=== PATIENT | male | born 1975 | race Caucasian/White ===

== ENCOUNTER 2019-12-23 12:35 | Day surgery (SDC) | payer MEDICAID, SELFPAY ==
[2019-12-22 11:27] VITALS: BMI 33.9
--- NOTE | 2019-12-22 12:18 | HO.ANESPROP2 ---
HPI - Anesthesia Eval Consult details Narrative: 44yo M for EGD PMFSH Past Medical History Medical History Constipation Depression Fatty liver Gastritis GERD (gastroesophageal reflux disease) Hiatal hernia Hypertension HERNANDEZ (nonalcoholic steatohepatitis) Obesity Surgical History Surgical History History of surgery on right wrist Social History Social History Alcohol intake: never Smoking Status: Never smoker Second Hand Smoke Exposure: No Use of substances other than those prescribed or required for medical reasons: No Advance Directives: No Advance Directives Information Provided: Yes Advance Directives on File: No Meds Allergies Allergy/AdvReac Type Severity Reaction Status Date / Time No Known Allergies Allergy Verified 12/22/19 12:20 Home Medications Medication Instructions Recorded Confirmed Type famotidine 20 mg PO BEDTIME 12/22/19 12/22/19 History metoprolol succinate 25 mg PO DAILY 12/22/19 12/22/19 History pantoprazole 40 mg PO DAILY 12/22/19 12/22/19 History Exam Exam Date and Time: December 22, 2019 1218 Height,Weight and Vital Signs: Height 5 ft 5 in Weight 92.533 kg Pertinent Lab Results Pertinent Lab Results: Laboratory Tests 11/10/19 11/10/19 09:50 09:50 WBC 7.6 Hgb 16.6 Hct 49.9 Plt Count 273 Sodium 137 Potassium 4.5 Chloride 102 BUN 18 H Creatinine 1.25 Assessment and Plan Assessment Anesthesia Assessment: Chart Reviewed
[2019-12-23 13:17] VITALS: PULSE 81; RESP 18; TEMP 36.6
[2019-12-23] MEDS: Lactated Ringers 1,000 ML 100 ML IVCONT (13:28)
--- NOTE | 2019-12-23 14:00 | P.HPSUR_ITS ---
Pre-Procedural Eval Section B Chief Complaint: gerd Relevant Family History (Specify if Yes): No Relevant Social History: None Present Medications: see Short Stay Collaborative assessment Medical History: Significant History (lux, obesity, HTN, depression) History of Previous Operations: No relevant previous surgery Allergies: Allergies Allergy/AdvReac Type Severity Reaction Status Date / Time No Known Allergies Allergy Verified 12/22/19 12:20 Review of Systems Sugical H&P ROS: Negative: Constitution, Cardiovascular, Respiratory, Neurological, Psychiatric, Hem-Onc, Allergic/Immunologic, Gastrointestinal, Genitourinary, Musculoskeletal, Integumentary, Endocrine and Eyes/Ears/N ose/Throat Exam Surgical H&P Exam: Normal: HEENT, Normal: Heart, Normal: Lungs, Normal: Extremities, Normal: Abdomen, Normal: Skin and Normal: Neurological Plan Diagnosis/Plan: Unchanged Patient has been examined and remains a candidate for the planned procedure
--- NOTE | 2019-12-23 14:21 | PM.OP ---
Brief Operative Note Date of procedure: 12/23/19 Pre-op diagnosis: GERD Post-op diagnosis: same Procedure: EGD-see op note Surgeon: Brittany Oliveira MD Anesthesia: MAC Estimated blood loss (mL): 0 Condition: stable Disposition: PACU
--- NOTE | 2019-12-23 14:21 | W.PM.OPN ---
Operative Note Operative Note Narrative: Procedure Description: EGD FLEXIBLE TRANSORAL UPPER GASTROINTESTINAL ENDOSCOPY UPPER ENDOSCOPY Consent: Indications for the procedure and potential complications of bleeding, perforation, reaction to medications and missed diagnosis were discussed with the patient and informed consent was obtained. Instrument: Olympus GIF H 190 J mid size upper endoscope Monitoring: Vital signs and clinical assessment, continuous EKG monitoring, Pulse oximetry, Carbon Dioxide monitoring and blood pressure monitoring were done throughout the procedure. Procedure: The patient was placed in the left lateral decubitis position and pre-procedure medications were administered and a bite block was placed. The endoscope was inserted into the mouth and advanced under direct vision to the third part of duodenum. A careful inspection was made as the upper endoscope was withdrawn including a retroflexed examination of the proximal stomach; Findings and interventions are described below. Findings: Larynx:normal Esophagus: GE junction at 35 cm, diaphragm hiatus at 33 cm, consistent with 2 cm sliding hiatal hernia, mild esophagitis noted with irregular Z line, bx taken from gEJ and random esophagus in seperate jars, LES also seemed lax. Stomach: Patchy gastric erythema. Biopsies were obtained. Grade 2 flap valve on retroflexed examination of the cardia. Duodenum: Normal bulb and descending duodenum, Intervention: Biopsies as noted above Impression/Findings: gastritis esophagitis hiatal hernia, lax LES PLAN: if current PPI controlling sx then continue otherwise can increase dose or change therapy Reflux precautions weight loss and diet changes
[2019-12-23 14:26] VITALS: BP 129/68; PULSE 81; RESP 18; TEMP 36.4; O2SAT 95
[2019-12-23 14:41] VITALS: BP 120/78; PULSE 70; RESP 18; TEMP 36.4; O2SAT 97
[2019-12-23] MEDS: Magnesium Hydrox/Alum Hydrox 30 ML ORAL.SUSP PO (15:03)
--- NOTE | 2019-12-23 15:39 | HO.POSTANES ---
Post Anesthesia Evaluation Post Anesthesia Evaluation Vital Signs: Vital Signs Temp Pulse Resp BP Pulse Ox 12/23/19 14:41 97.6 F 70 18 120/78 97 12/23/19 14:26 97.6 F 81 18 129/68 95 12/23/19 13:17 98 F 81 18 Anesthesia: Monitored Mental Status: Awake Pain Control: Satisfactory Nausea/Vomiting: None Hydration: Adequate Anesthesia-Related Issues: No Anes. Related Issues
== END 2019-12-23 16:00 | disposition home or self-care (01) ==
PROVIDERS: PCP Internal Medicine; Visit Provider Internal Medicine Gastroenterology
PROC: 0DJ08ZZ Inspection of Upper Intestinal Tract, Via Natural or Artificial Opening Endoscopic (ICD-10-PCS; CPT 43235; principal; 2019-12-23 11:10)
DX: K21.00 Gastro-esophageal reflux disease with esophagitis, without bleeding (principal); K29.50 Unspecified chronic gastritis without bleeding; K44.9 Diaphragmatic hernia without obstruction or gangrene; K75.81 Nonalcoholic steatohepatitis (NASH); I10 Essential (primary) hypertension; Z79.899 Other long term (current) drug therapy
CPT/HCPCS: 43239; 88305; 88342

== ENCOUNTER → 2020-02-09 14:32 | Outpatient (BNVA) | payer MEDICAID, SELFPAY | PROVIDERS: PCP Internal Medicine; Visit Provider Nurse Practitioner | DX: Z76.89 Persons encountering health services in other specified circumstances (principal) ==

== ENCOUNTER → 2020-11-28 16:17 | Outpatient (BNVA) | payer MEDICAID, SELFPAY | PROVIDERS: PCP Internal Medicine; Referring Provider Internal Medicine; Visit Provider Nurse Practitioner | DX: K21.9 Gastro-esophageal reflux disease without esophagitis (principal); K22.10 Ulcer of esophagus without bleeding; R10.84 Generalized abdominal pain | CPT/HCPCS: 99212 ==

== ENCOUNTER 2021-01-08 13:00 | Outpatient (REF) | payer MEDICAID, SELFPAY ==
--- NOTE | ~2021-01-08 | XR_ITS ---
EXAMINATION: XR LUMBOSACRAL SPINE WITH OBLIQUES CLINICAL INFORMATION: Low back pain COMPARISON: CT abdomen pelvis 11/27/2018 TECHNIQUE: 5 views of the lumbar spine were obtained. FINDINGS: 5 nonrib-bearing lumbar vertebral bodies are visualized. Mild levoscoliosis of the lumbar spine centered at L3. Alignment is otherwise unremarkable. Vertebral body heights are maintained. Mildly decreased L4/L5 and L5/S1 disc space heights. Mild degenerative changes of the posterior elements of the lower lumbar spine. Similar chronic changes along the anterior aspect of the superior L5 endplate. Sacroiliac joints are symmetric. XR/XR lumbar spine 4V min IMPRESSION: Similar mild degenerative changes of the lower lumbar spine without compression deformity.
== END 2021-01-08 13:01 | disposition home or self-care (01) ==
LOC: HO.XRAY 13:00
PROVIDERS: PCP Internal Medicine; Visit Provider Internal Medicine
DX: M54.50 Low back pain, unspecified (principal)
CPT/HCPCS: 72110

== ENCOUNTER → 2021-06-04 12:51 | Outpatient (BNVA) | payer MEDICAID, SELFPAY | PROVIDERS: PCP Internal Medicine; Referring Provider Internal Medicine; Visit Provider Nurse Practitioner | DX: K22.10 Ulcer of esophagus without bleeding (principal); K21.9 Gastro-esophageal reflux disease without esophagitis; R10.84 Generalized abdominal pain | CPT/HCPCS: 99212 ==

== ENCOUNTER 2021-10-17 12:07 | Emergency (ER) | payer MEDICAID, SELFPAY ==
--- NOTE | ~2021-10-17 | XR_ITS ---
EXAMINATION: XR KNEE, RIGHT CLINICAL INFORMATION: Swelling COMPARISON: None TECHNIQUE: 2 views of the right knee. FINDINGS: Bone alignment is normal. No fracture or dislocation is seen. The joint spaces are normal. There is a small joint effusion. XR/XR knee RT 2V IMPRESSION: Small joint effusion.
[2021-10-17 12:33] VITALS: BP 155/90; PULSE 82; RESP 18; TEMP 36.8; O2SAT 96; BMI 32.4
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
== END 2021-10-17 15:09 | disposition home or self-care (01) ==
PROVIDERS: Emergency Provider Emergency Medicine
DX: M25.561 Pain in right knee (principal); M25.461 Effusion, right knee
CPT/HCPCS: 73560; 99283

== ENCOUNTER 2021-11-08 07:40 | Outpatient (REF) | payer MEDICAID, SELFPAY ==
--- NOTE | ~2021-11-08 | XR_ITS ---
EXAMINATION: XR BOTH KNEES AP STANDING XR RIGHT KNEE, 1 VIEW CLINICAL INFORMATION: Pain. COMPARISON: Right knee radiographs dated 10/17/2021. TECHNIQUE: Standing AP view of both knees and sunrise view of the right knee. FINDINGS: Right knee: Mild medial compartment joint space narrowing. No marginal osteophytes. No osseous erosion. No fracture or dislocation. Normal patellofemoral alignment. No abnormal soft tissue calcification. Left knee: Mild medial compartment joint space narrowing. No marginal osteophytes. No osseous erosion. No displaced fracture or dislocation. No abnormal soft tissue calcification. XR/XR knee standing BI IMPRESSION: Right knee: Minimal medial compartment arthrosis. Left knee: Minimal medial compartment arthrosis.
--- NOTE | ~2021-11-08 | XR_ITS ---
EXAMINATION: XR BOTH KNEES AP STANDING XR RIGHT KNEE, 1 VIEW CLINICAL INFORMATION: Pain. COMPARISON: Right knee radiographs dated 10/17/2021. TECHNIQUE: Standing AP view of both knees and sunrise view of the right knee. FINDINGS: Right knee: Mild medial compartment joint space narrowing. No marginal osteophytes. No osseous erosion. No fracture or dislocation. Normal patellofemoral alignment. No abnormal soft tissue calcification. Left knee: Mild medial compartment joint space narrowing. No marginal osteophytes. No osseous erosion. No displaced fracture or dislocation. No abnormal soft tissue calcification. XR/XR knee RT 1V IMPRESSION: Right knee: Minimal medial compartment arthrosis. Left knee: Minimal medial compartment arthrosis.
== END 2021-11-08 07:41 | disposition home or self-care (01) ==
LOC: HO.HOSX 07:40
PROVIDERS: Visit Provider Physician Assistant
DX: M23.91 Unspecified internal derangement of right knee (principal)
CPT/HCPCS: 73560; 73565; 99202

== ENCOUNTER → 2021-12-20 12:47 | Outpatient (BNVA) | payer MEDICAID, SELFPAY | PROVIDERS: Visit Provider Physician Assistant | DX: M23.91 Unspecified internal derangement of right knee (principal) | CPT/HCPCS: 99212 ==

== ENCOUNTER 2022-11-28 15:15 | Outpatient (REF) | payer MEDICAID, SELFPAY ==
[2022-11-28 16:00] LABS: Basophils Absolute Auto 0.1 X10*3/uL (0.0-0.2); Basophils Percent Auto 0.5 % (0-2); Eosinophils Absolute Auto 0.1 X10*3/uL (0.0-0.4); Eosinophils Percent Auto 0.6 % (0-4); Hematocrit 48.6 % (42.0-52.0); Hemoglobin 16.6 g/dl (14.0-18.0); Imm Gran Abs Auto 0.07 X10*3/uL (0.00-0.03); Imm Gran Pct Auto 0.6 % (0.0-0.4); Lymphocytes Absolute Auto 1.7 X10*3/uL (1.2-4.9); Lymphocytes Percent Auto 15.4 % (20-40); MANUAL DIFF FLAG NO; Mean Corpuscular HGB Conc 34.2 g/dl (31.0-36.0); Mean Corpuscular Hemoglobin 30.5 pg (27.0-33.0); Mean Corpuscular Volume 89.3 fL (80.0-98.0); Mean Platelet Volume 10.7 fL (9.4-12.4); Monocytes Absolute Auto 0.9 X10*3/uL (0.1-1.2); Monocytes Percent Auto 7.9 % (2-11); Neutrophils Absolute Auto 8.2 x10*3/uL (2.0-8.3); Platelet Count 290 X10*3/uL (160-400); Red Blood Count 5.44 X10*6/uL (4.60-5.80); Red Cell Distribution Width 12.1 % (11.0-16.0); White Blood Count 10.9 X10*3/uL (4.8-10.8)
[2022-11-28 16:09] LABS: Estimated Average Glucose 94 mg/dL; Hemoglobin A1c % 4.9 % (<6.0)
[2022-11-28 16:30] LABS: Anion Gap 17 (12-20); Blood Urea Nitrogen 11 mg/dL (9-16); Calcium 10.3 mg/dL (8.4-10.2); Carbon Dioxide 25 mmol/L (22-29); Chloride 103 mmol/L (96-108); Cholesterol 189 mg/dL (<200); Estimated Glomerular Filt Rate > 60; Glucose Random 100 mg/dL (60-115); HDL Cholesterol 51 mg/dL (>40); LDL Cholesterol Calculated 123 mg/dL (<100); Potassium 4.3 mmol/L (3.3-5.1); Sodium 141 mmol/L (135-145); Triglycerides 78 mg/dL (<150)
[2022-11-29 03:50] LABS: HIV AB/AG Nonreactive (Nonreactive); HIV Num 1 0.05 S/CO (0.00-0.99); ~HepC Num1 0.05 S/CO (0.00-0.79); ~Hepatitis C Antibody Nonreactive (Nonreactive)
== END 2022-11-28 15:16 | disposition home or self-care (01) ==
LOC: HO.HHCL 15:15
PROVIDERS: Visit Provider Internal Medicine
DX: Z11.4 Encounter for screening for human immunodeficiency virus [HIV] (principal); I10 Essential (primary) hypertension
CPT/HCPCS: 36415; 80048; 80061; 83036; 85025; 86803; 87389